=== PATIENT | male | born 1970 | race Caucasian/White ===

== ENCOUNTER 2024-10-13 11:38 | Emergency (ER) | payer OTHER ==
[~2024-10-13] VITALS: Ht 193 cm; Wt 173.4 kg
[~2024-10-13 11:38] MED LIST: NAPROSYN375 MG PO; NORCO 5-325 TA1 EACH PO
[2024-10-13] MEDS ORDERED: KETOROLAC TROMETHAMINE 30 MG/ML VIAL IM ONE (12:00)
[2024-10-13] MEDS ORDERED: CYCLOBENZAPRINE HCL 10 MG TAB PO ONE (12:00)
[2024-10-13] MEDS ORDERED: OXYCODONE/APAP 5/325 TAB PO ONE ×2 (12:00→13:00)
[2024-10-13] MEDS ORDERED: CYCLOBENZAPRINE10 MG PO (14:00)
[2024-10-13 14:10] VITALS: BP 115/53
== END 2024-10-13 14:10 | disposition home or self-care (01) ==
LOC: ED 11:38
DX: M54.41 Lumbago with sciatica, right side (principal); E11.9 Type 2 diabetes mellitus without complications; M10.9 Gout, unspecified; Z87.891 Personal history of nicotine dependence; Z79.84 Long term (current) use of oral hypoglycemic drugs; Z79.899 Other long term (current) drug therapy
CPT/HCPCS: 96372; 99283; J1885

== ENCOUNTER 2024-11-19 21:41 | Emergency (ER) | payer OTHER ==
[~2024-11-19] VITALS: Ht 193 cm; Wt 162.5 kg
[~2024-11-19 21:41] MED LIST changes: +CYCLOBENZAPRINE10 MG PO
[2024-11-19] MEDS ORDERED: ASPIRIN 81 MG CHEW PO ONE (22:00)
[2024-11-19] MEDS ORDERED: METFORMIN HCL500 MG PO (22:08)
[2024-11-19] MEDS ORDERED: CIALIS10 MG PO (22:10)
[2024-11-19] MEDS ORDERED: ASPIRIN325 MG PO (22:11)
[2024-11-19 22:12] LABS: BASOPHILS 0.7 % (0-2); EOSINOPHILS 2.9 % (0-6); HEMATOCRIT 42.5 % (35.0-50.0); HEMOGLOBIN 14.7 g/dL (12.0-18.0); LYMPHOCYTES 25.4 % (24-44); MCH 30.2 (27-36); MCHC 34.6 g/dl (30-36); MCV 87.1 fl (81-99); MONOCYTES 9.1 % (0-12); NEUTROPHILS 61.9 % (39-80); PLATELET COUNT 244 K/uL (140-440); RBC 4.88 M/ul (4.3-5.7)
[2024-11-19 22:29] LABS: ALBUMIN 3.6 g/dL (3.4-5.0); ANION GAP 7.3 (7-21); BILIRUBIN, TOTAL 0.4 mg/dL (0.2-1.0); BUN/CREATININE RATIO 13.39 (6.0-28.6); CALCIUM 8.6 mg/dL (8.5-10.1); CREATININE, SERUM 1.12 mg/dL (0.70-1.30); MAGNESIUM 1.9 mg/dL (1.8-2.4); POTASSIUM 3.3 mmol/L (3.5-5.1); PROTEIN, TOTAL 7.2 g/dL (6.4-8.2)
[2024-11-19] MEDS ORDERED: POTASSIUM CHLORIDE 10 MEQ TABCR PO ONE (23:45)
[2024-11-20 00:11] VITALS: BP 142/69
--- NOTE | 2024-11-21 14:13 | EKG ---
[facility] [address] [place], [place] [address] Signed Normal sinus rhythm Normal ECG No previous ECGs available Confirmed by Otto Georges MD ([id number]) on 11/21/2024 2:12:47 PM Electronically Signed By: OTTO GEORGES MD 11/21/24 1413 PATIENT NAME: MELCHOR THOMAS Electrocardiogram DATE OF : 70 PHYSICIAN: OTTO GEORGES MD REPORT #: [id number] REPORT IS CONFIDENTIAL AND NOT TO BE RELEASED WITHOUT AUTHORIZATION
== END 2024-11-20 00:10 | disposition home or self-care (01) ==
LOC: ED 21:41
PROVIDERS: Emergency Medicine
DX: I49.3 Ventricular premature depolarization (principal); Z79.84 Long term (current) use of oral hypoglycemic drugs; Z79.82 Long term (current) use of aspirin; Z79.899 Other long term (current) drug therapy; Z87.891 Personal history of nicotine dependence
CPT/HCPCS: 36415; 71045; 80053; 83735; 84484; 85025; 93005; 93010; 99285-25; A9270